=== PATIENT | female | born 1945 | race African-American/Black ===

== ENCOUNTER → 2016-05-15 | Outpatient (CLI) | payer OTHER ==
[~2016-05-15] MED LIST: ACCUNEB SO1.25 MG/1 INH; ADVAIR PO; AMOXICILLIN 50500 M1 PO; BENTYL20 MG PO; CLEOCIN HCL150 MG PO; IBUPROFEN 600600 M1 PO; MICARDIS HCT 81 EAC1 PO; NORCO 5-325 TA1 EACH PO; NORVASC 5 MG TAB5 MG PO; SINGULAIR 10 MG10 M1 PO; TOVIAZ4 MG PO; VERAMYST10 GM
== END ==
LOC: RAD 12:04
DX: R06.02 Shortness of breath (principal)

== ENCOUNTER → 2016-10-23 | Outpatient (CLI) | payer OTHER | LOC: MRI 02:04 | DX: R26.89 Other abnormalities of gait and mobility (principal); R51 Headache; R42 Dizziness and giddiness ==

== ENCOUNTER 2017-05-13 18:33 | Emergency (ER) | payer OTHER ==
[~2017-05-13] VITALS: Ht 170.2 cm; Wt 86.2 kg
[2017-05-13] MEDS ORDERED: MYRBETRIQ50 MG PO (19:40)
[2017-05-13] MEDS ORDERED: COZAAR 25 MG TA25 M1 (19:40)
== END 2017-05-13 19:50 | disposition home or self-care (01) ==
LOC: ER 18:33
DX: S09.90XA Unspecified injury of head, initial encounter (principal); I10 Essential (primary) hypertension; Z90.710 Acquired absence of both cervix and uterus; Z98.890 Other specified postprocedural states; W22.8XXA Striking against or struck by other objects, initial encounter; Y93.89 Activity, other specified; Y92.89 Other specified places as the place of occurrence of the external cause; Y99.8 Other external cause status

== ENCOUNTER 2018-06-11 19:14 | Emergency (ER) | payer OTHER ==
[~2018-06-11] VITALS: Ht 170.2 cm; Wt 86.2 kg
[~2018-06-11 19:14] MED LIST changes: +COZAAR 25 MG TA25 M1; +MYRBETRIQ50 MG PO
[2018-06-11] MEDS ORDERED: MOBIC7.5 MG PO (19:53)
[2018-06-11] MEDS ORDERED: CLEOCIN HCL150 MG PO (19:54)
[2018-06-11 20:18] VITALS: BP 173/73
== END 2018-06-11 20:18 | disposition home or self-care (01) ==
LOC: ER 19:14
DX: K11.20 Sialoadenitis, unspecified (principal); I10 Essential (primary) hypertension; Z90.710 Acquired absence of both cervix and uterus; E89.0 Postprocedural hypothyroidism; Z88.8 Allergy status to other drugs, medicaments and biological substances

== ENCOUNTER → 2019-09-25 | Outpatient (CLI) | payer OTHER | LOC: LAB 14:22 | DX: Z01.812 Encounter for preprocedural laboratory examination (principal) ==

== ENCOUNTER → 2019-09-28 | Outpatient (CLI) | payer OTHER ==
[~2019-09-28] MED LIST changes: +MOBIC7.5 MG PO
--- NOTE | 2019-10-02 22:12 | SLE ---
[facility] [place] [address] POLYSOMNOGRAPHY STUDY Name: JERRY ROSEN DIEUDONNE Room #: REG [facility]..#: [id number] Admission: 09/28/19 Attend Phys: David Reid MD Discharge: Date of : 41 Report #: [id number] THIS REPORT FOR: //name// CC: David Sousa DATE OF SERVICE: 09/29/2019 SLEEP STUDY ATTENDING PHYSICIAN: Dr. Dean Gama. The patient is 73 years old who weighs 185 pounds with a BMI of 30.8. The patient's [place] score was 5. The patient underwent diagnostic sleep study performed at [facility]. During the night study, the patient spent 372 minutes in bed and slept for 256 minutes with a low sleep efficiency of 68%. Sleep latency was 11.3 minutes with a REM latency of 143 minutes. Overall, sleep architecture showed normal stage 1 sleep, increased stage 2 sleep, normal slow wave and reduced REM sleep. During the night of the study, the patient had 21 obstructive apneas, no mixed apneas and no central apneas and there were 9 hypopneas. The patient's AHI was 7.02 per hour with a REM AHI of 41 per hour and a supine AHI of 10.5 per hour. Nocturnal oximetry study revealed an average oxygen saturation of 95% with the lowest of 86%. Only 1 minute was spent in oxygen saturation between 80% and 89%. EKG monitoring revealed normal sinus rhythm. Average heart rate of 48 beats per minute. PLMS were seen at an index of 7 per hour and only 0.3 per hour caused EEG arousals. Due to low AHI, the patient did not meet the split night criteria for CPAP initiation. IMPRESSION: 1. Mild obstructive sleep apnea with worsening during rapid eye movement sleep. Total apnea-hypopnea index 7 per hour with a rapid eye movement apnea-hypopnea index of 41 per hour. 2. No clinically significant nocturnal hypoxia. 3. No clinically significant periodic limb movements of sleep. [facility] [address] [place] [address] POLYSOMNOGRAPHY STUDY Name: JERRY ROSEN [facility] Room #: REG [facility].#: [id number] Admission: 09/28/19 Attend Phys: David Reid MD Discharge: Date of : 41 Report #: [id number] 4. Reduced sleep efficiency resulting from sleep maintenance insomnia. RECOMMENDATIONS: 1. The patient did not meet the split night criteria for CPAP initiation due to low AHI. 2. Patient has mild sleep apnea, weight loss as initial form of treatment can be considered. However, if the patient is clinically symptomatic or has comorbid conditions, then consider treatment with either CPAP versus oral appliance. 3. Avoid [employer]MENT[employer] depressants. 4. Cautioned regarding driving until symptoms of sleep apnea resolve with the above recommendations. <ELECTRONICALLY SIGNED> By: David Reid MD 10/02/19 [id number] David Reid MD /rangel
== END ==
LOC: SLEEPLAB 13:26
PROVIDERS: ATTEND Internal Medicine Critical Care Medicine
DX: G47.33 Obstructive sleep apnea (adult) (pediatric) (principal); R53.83 Other fatigue; J45.40 Moderate persistent asthma, uncomplicated

== ENCOUNTER → 2020-02-14 | Outpatient (CLI) | payer OTHER | LOC: RAD 09:36 | PROVIDERS: ATTEND Pediatrics | DX: G47.33 Obstructive sleep apnea (adult) (pediatric) (principal) ==